=== PATIENT | female | born 1995 | race African-American/Black ===

== ENCOUNTER 2019-09-18 01:20 | Emergency (ER) | payer BC ==
[2019-09-18] MEDS ORDERED: Lidocaine 1% (PF) 30 ML VIAL ONE (01:49)
== END 2019-09-18 02:22 | disposition home or self-care (01) ==
LOC: NAV ERS 01:20
DX: S01.81XA Laceration without foreign body of other part of head, initial encounter (principal); J45.909 Unspecified asthma, uncomplicated; Y04.8XXA Assault by other bodily force, initial encounter
CPT/HCPCS: 12011; J2001

== ENCOUNTER 2020-03-08 12:57 | Emergency (ER) | payer BC, OTHER ==
[2020-03-09 12:31] LABS: SARS-CoV-2 MS2 Positive; SARS-CoV-2 N Gene Negative; SARS-CoV-2 S Gene Negative; SARS-CoV-2 by NAA Not Detected (NotDetected); SARS-CoV-2 orf1ab Negative
== END 2020-03-08 13:19 | disposition home or self-care (01) ==
LOC: NAV ERS 12:57
DX: Z20.828 Contact with and (suspected) exposure to other viral communicable diseases (principal)
CPT/HCPCS: 87635; 99283; U0003

== ENCOUNTER 2020-05-08 12:09 | Emergency (ER) | payer BC, OTHER ==
[2020-05-09 02:59] LABS: SARS-CoV-2 MS2 Positive; SARS-CoV-2 N Gene Negative; SARS-CoV-2 S Gene Negative; SARS-CoV-2 by NAA Not Detected (NotDetected); SARS-CoV-2 orf1ab Negative
== END 2020-05-08 13:00 | disposition home or self-care (01) ==
LOC: NAV ERS 12:09
DX: Z20.828 Contact with and (suspected) exposure to other viral communicable diseases (principal); J45.909 Unspecified asthma, uncomplicated; Z79.899 Other long term (current) drug therapy
CPT/HCPCS: 87635; 99283; U0003